=== PATIENT | male | born 1990 | race Caucasian/White ===

== ENCOUNTER 2025-02-03 09:39 | Emergency (ER) | payer OTHER ==
[~2025-02-03] VITALS: Ht 170.2 cm; Wt 75.0 kg
[2025-02-03] MEDS ORDERED: SUBOXONE 8 MG-1 EAC1 SL (09:53)
[2025-02-03 11:05] VITALS: BP 118/74
== END 2025-02-03 10:55 | disposition home or self-care (01) ==
LOC: ED 09:39
DX: S67.21XA Crushing injury of right hand, initial encounter (principal); Z88.0 Allergy status to penicillin; Z88.2 Allergy status to sulfonamides; W23.0XXA Caught, crushed, jammed, or pinched between moving objects, initial encounter
CPT/HCPCS: 73130; 99283

== ENCOUNTER 2025-02-19 01:57 | Emergency (ER) | payer OTHER ==
[~2025-02-19] VITALS: Ht 170.2 cm; Wt 75.5 kg
[~2025-02-19 01:57] MED LIST: SUBOXONE 8 MG-1 EAC1 SL
--- OUTSIDE RECORDS SUMMARY | 2025-02-19 01:58 | XMS ---
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 ESandie VISIT COUNT (12 MO.) 2 [facility] TOTAL 2 NOTE: Visits indicate total known visits. ED/UCC VISIT TRACKING (12 MO.) 02/19/2025 01:57 [facility] TYPE: Emergency COMPLAINT: - VOMITING 02/03/2025 09:40 [facility] TYPE: Emergency COMPLAINT: - RT HAND INJURY DIAGNOSES: - Allergy status to penicillin - Allergy status to sulfonamides - Caught, crushed, jammed, or pinched between moving objects, initial encounter - Crushing injury of right hand, initial encounter - Unspecified injury of right wrist, hand and finger(s), initial encounter INPATIENT VISIT TRACKING (12 MO.) No inpatient visits to display in this time frame [email or web address]
[2025-02-19] MEDS ORDERED: KETOROLAC TROMETHAMINE 30 MG/ML VIAL IV ONE (02:15)
[2025-02-19 02:27] LABS: BLOOD/HGB, URINE NEGATIVE (Negative); KETONE, URINE TRACE (Negative); LEUK ESTERASE, URINE NEGATIVE (negative); NITRITE, URINE NEGATIVE (negative)
[2025-02-19] MEDS ORDERED: ONDANSETRON 4 MG HOME.PACK SL ONE ×2 (03:00)
[2025-02-19 03:15] VITALS: BP 108/76
== END 2025-02-19 03:16 | disposition home or self-care (01) ==
LOC: ED 01:57
PROVIDERS: Emergency Medicine
DX: R10.31 Right lower quadrant pain (principal); Z88.0 Allergy status to penicillin; Z88.2 Allergy status to sulfonamides
CPT/HCPCS: 74176; 80053; 81003; 83690; 85025; 99284-25; A9270

== ENCOUNTER 2025-03-07 18:14 | Emergency (ER) | payer OTHER ==
[~2025-03-07] VITALS: Ht 170.2 cm; Wt 78.5 kg
--- OUTSIDE RECORDS SUMMARY | 2025-03-07 18:21 | XMS ---
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 ESandie VISIT COUNT (12 MO.) [address] [place] [address] TOTAL 3 NOTE: Visits indicate total known visits. ED/UCC VISIT TRACKING (12 MO.) 03/07/2025 18:[address] [facility] TYPE: Emergency COMPLAINT: - SHAKEY 02/19/2025 01:[address] [facility] TYPE: Emergency COMPLAINT: - VOMITING DIAGNOSES: - Allergy status to penicillin - Allergy status to sulfonamides - Right lower quadrant pain - Unspecified abdominal pain 02/03/2025 09:40 [facility] TYPE: Emergency [...] visits to display in this time frame [email or web address]
[2025-03-07] MEDS ORDERED: KETOROLAC TROMETHAMINE 15 MG/ML VIAL IV ONE (19:45)
[2025-03-07 19:48] LABS: BASOPHILS 0.3 % (0.2-1.2); EOSINOPHILS 1.2 % (0.8-7.0); LYMPHOCYTES 28.2 % (21.8-53.1); MCH 29.6 PG (25.7-32.2); MCHC 33.4 g/dL (32.3-36.5); MCV 88.5 fL (79.0-92.2); MONOCYTES 9.0 % (5.3-12.2); NEUTROPHILS 61.0 % (34.0-67.9); RBC 4.60 M/uL (4.63-6.08)
[2025-03-07 20:01] LABS: ALT (SGPT) 62.0 U/L (14-59); AST (SGOT) 48.0 U/L (15-37); GLOMERULAR FILTRATION RATE,EST 118.0 mL/min (>60); PROTEIN, TOTAL 8.2 g/dL (6.4-8.2); UREA NITROGEN 15.0 mg/dL (7-18)
[2025-03-07 20:14] LABS: BLOOD/HGB, URINE NEGATIVE (Negative); KETONE, URINE NEGATIVE (Negative); LEUK ESTERASE, URINE NEGATIVE (negative); NITRITE, URINE NEGATIVE (negative)
[2025-03-07 20:29] LABS: AMPHETAMINES, URINE NEGATIVE (NEGATIVE); BARBITURATES, URINE NEGATIVE (NEGATIVE); BENZODIAZEPINE, URINE NEGATIVE (NEGATIVE); CANNABINOID, URINE POSITIVE (NEGATIVE); COCAINE, URINE NEGATIVE (NEGATIVE); ECSTASY, URINE NEGATIVE (NEGATIVE); FENTANYL, URINE NEGATIVE (NEGATIVE); METHADONE, URINE NEGATIVE (NEGATIVE); OPIATES, URINE NEGATIVE (NEGATIVE); OXYCODONE, URINE NEGATIVE (NEGATIVE); PHENCYCLIDINE, URINE NEGATIVE (NEGATIVE)
[2025-03-07 21:05] VITALS: BP 108/59
== END 2025-03-07 21:05 | disposition home or self-care (01) ==
LOC: ED 18:14
PROVIDERS: Internal Medicine
DX: R10.9 Unspecified abdominal pain (principal); Z88.0 Allergy status to penicillin; Z88.2 Allergy status to sulfonamides
CPT/HCPCS: 36415; 73110; 80053; 80307; 81003; 84550; 85025; 85379; 96374; 96375; 99284-25; J1885; J2405